=== PATIENT | female | born 1995 | race Caucasian/White ===

== ENCOUNTER 2017-07-05 14:22 | Observation (INO) ==
[2017-07-05 14:54] LABS: Bilirubin,Urine Small (Negative); Blood,Urine Negative (Negative); Clarity,Urine Clear (Clear); Color,Urine Dark Yellow (Yellow); Glucose,Urine (UA) Normal (Normal); Ketones,Urine 15 mg/dL (Negative); Leukocyte Esterase,Urine Negative (Negative); Nitrite,Urine Negative (Negative); PH,Urine 7.5 pH Units (5.0-8.0); Protein,Urine 30 mg/dL (Neg-Trace); Specific Gravity,Urine 1.029 (1.010-1.025); Urobilinogen,Urine Normal (Normal)
[2017-07-05 14:56] LABS: Bacteria,Urine Few per hpf (None-Few); Hyaline Casts,Urine None Seen per lpf (None-Few); RBC,Urine 0-3 per hpf (0-3); Squamous Epithelial Cell,Urine Many per lpf (None-Few)
--- NOTE | 2017-07-05 15:30 | Emergency Department Note ---
Disposition Clinical Impression: Appendicitis Qualifiers: Appendicitis type: acute appendicitis Acute appendicitis type: with localized peritonitis Qualified Code(s): K35.3 - Acute appendicitis with localized peritonitis Disposition: Admitted As Inpatient Condition: Good Time of Disposition: 15:49 General Adult HPI - General Chief complaint: ED Abdominal Pain Stated complaint: ABD pain Time Seen by Provider: 07/05/17 15:00 Source: patient Limitations: no limitations - History of Present Illness Pain Scale: 10 - Related Data Home Medications Medication Instructions Recorded Confirmed Albuterol Sulfate [Albuterol 2 puff IH Q4H PRN 10/09/15 07/05/17 Inhaler] Previous Rx's Medication Instructions Recorded Docusate [Colace] 100 mg PO BID #14 capsule 07/06/17 Oxycodone HCl 5 mg PO Q6H PRN #28 tablet 07/06/17 Allergies Allergy/AdvReac Type Severity Reaction Status Date / Time Sulfa (Sulfonamide Allergy See Verified 07/05/17 14:26 Antibiotics) Comments doxylamine AdvReac Confusion Verified 07/05/17 14:26 [facility] [place] [facility] Past Medical History - Past Medical History Medical history: Reports: asthma, other Surgical history: Reports: cholecystectomy Psychiatric history: Reports: anxiety, depression 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 - Social History Smoking Status: Current every day smoker Smokeless Tobacco Status: No Alcohol use: Reports: none Drug use: Reports: none Physical Exam - General Limitations: no limitations General appearance: alert Course Vital Signs Temperature 98.2 F 07/05/17 14:26 Pulse Rate 71 07/05/17 14:26 Respiratory Rate 20 07/05/17 14:26 Blood Pressure 127/80 07/05/17 14:26 O2 Sat by Pulse Oximetry 100 07/05/17 14:26 Temperature 97.7 F 07/06/17 06:35 Pulse Rate 61 07/06/17 06:35 Respiratory Rate 16 07/06/17 06:35 Blood Pressure 110/72 07/06/17 06:35 O2 Sat by Pulse Oximetry 97 07/06/17 06:35 Oxygen Delivery Oxygen Delivery Room Air Medical Decision Making - Lab Data Result diagrams: 07/05/17 15:33 07/05/17 15:33 Lab Results 07/05/17 07/05/17 07/05/17 Range/Units 14:43 14:43 15:33 WBC 17.9 H (4.3-11.1) K/mcL RBC 4.37 (3.82-4.97) M/mcL Hgb 13.7 (11.5-15.4) g/dL Hct 40.9 (35.3-44.9) % MCV 93.6 (83.0-100.0) fL MCH 31.4 (28.0-33.3) pg MCHC 33.5 (31.6-35.5) g/dL RDW 12.2 (11.5-14.5) % Plt Count 271 (140-400) K/mcL MPV 10.5 (9.4-12.4) fL Immature Gran % 0.4 (0-4) % Seg Neutrophils % 86.8 % Lymphocytes % 7.6 % Monocytes % 4.8 % Eosinophils % 0.2 % Basophils % 0.2 % Neutrophils # 15.6 H (1.6-8.9) K/mcL Lymphocytes # 1.4 (0.6-4.6) K/mcL Monocytes # 0.9 (0.0-1.3) K/mcL Eosinophils # 0.0 (0.0-0.6) K/mcL Basophils # 0.0 (0.0-0.2) K/mcL Immature Plt Fraction 4.6 (1.1-6.1) % Sodium (136-145) mEq/L Potassium (3.5-5.1) mEq/L Chloride (98-107) mEq/L Carbon Dioxide (23-29) mEq/L BUN (6-20) mg/dL Creatinine (0.60-1.20) mg/dL Est GFR ( Amer) (> 60) Est GFR (Non-Af Amer) (> 60) BUN/Creatinine Ratio (6-26) Glucose (70-105) mg/dL Calculated Osmolality (280-300) Calcium (8.6-10.3) mg/dL Total Bilirubin (0.3-1.0) mg/dL AST (13-39) Units/L ALT (7-52) Units/L Alkaline Phosphatase (34-104) Units/L Serum Total Protein (6.4-8.9) g/dL Albumin (3.5-5.7) g/dL Globulin (2.4-3.5) g/dL Albumin/Globulin Ratio (1.1-2.2) Amylase (29-103) Units/L Lipase (11-82) Units/L Urine Color Dark Yellow (Yellow) Urine Clarity Clear (Clear) Urine pH 7.5 (5.0-8.0) pH Units Ur Specific [place] 1.029 H (1.010-1.025) Urine Protein 30 H (Neg-Trace) mg/dL Urine Glucose (UA) Normal (Normal) mg/dL Urine Ketones 15 H (Negative) mg/dL Urine Blood Negative (Negative) Urine Nitrite Negative (Negative) Urine Bilirubin Small H (Negative) Urine Urobilinogen Normal (Normal) mg/dL Ur Leukocyte Esterase Negative (Negative) Urine Microscopic RBC 0-3 (0-3) per hpf Urine Microscopic WBC 3-5 H (0-3) per hpf Ur Squamous Epith Cells Many H (None-Few) per lpf Urine Bacteria Few (None-Few) per hpf Hyaline Casts None Seen (None-Few) per lpf Ur Culture Indicated? NO (NO) Urine Test Negative (Negative) 07/05/17 Range/Units 15:33 WBC (4.3-11.1) K/mcL RBC (3.82-4.97) M/mcL Hgb (11.5-15.4) g/dL Hct (35.3-44.9) % MCV (83.0-100.0) fL MCH (28.0-33.3) pg MCHC (31.6-35.5) g/dL RDW (11.5-14.5) % Plt Count (140-400) K/mcL MPV (9.4-12.4) fL Immature Gran % (0-4) % Seg Neutrophils % % Lymphocytes % % Monocytes % % Eosinophils % % Basophils % % Neutrophils # (1.6-8.9) K/mcL Lymphocytes # (0.6-4.6) K/mcL Monocytes # (0.0-1.3) K/mcL Eosinophils # (0.0-0.6) K/mcL Basophils # (0.0-0.2) K/mcL Immature Plt Fraction (1.1-6.1) % Sodium 136 (136-145) mEq/L Potassium 4.4 (3.5-5.1) mEq/L Chloride 106 (98-107) mEq/L Carbon Dioxide 26 (23-29) mEq/L BUN 6 (6-20) mg/dL Creatinine 0.69 (0.60-1.20) mg/dL Est GFR ( Amer) > 60 (> 60) Est GFR (Non-Af Amer) > 60 (> 60) BUN/Creatinine Ratio 9 (6-26) Glucose 104 (70-105) mg/dL Calculated Osmolality 280 (280-300) Calcium 9.4 (8.6-10.3) mg/dL Total Bilirubin 0.9 (0.3-1.0) mg/dL AST 11 L (13-39) Units/L ALT 16 (7-52) Units/L Alkaline Phosphatase 58 (34-104) Units/L Serum Total Protein 6.9 (6.4-8.9) g/dL Albumin 4.4 (3.5-5.7) g/dL Globulin 2.5 (2.4-3.5) g/dL Albumin/Globulin Ratio 1.8 (1.1-2.2) Amylase 18 L (29-103) Units/L Lipase 12 (11-82) Units/L Urine Color (Yellow) Urine Clarity (Clear) Urine pH (5.0-8.0) pH Units Ur Specific [place] (1.010-1.025) Urine Protein (Neg-Trace) mg/dL Urine Glucose (UA) (Normal) mg/dL Urine Ketones (Negative) mg/dL Urine Blood (Negative) Urine Nitrite (Negative) Urine Bilirubin (Negative) Urine Urobilinogen (Normal) mg/dL Ur Leukocyte Esterase (Negative) Urine Microscopic RBC (0-3) per hpf Urine Microscopic WBC (0-3) per hpf Ur Squamous Epith Cells (None-Few) per lpf Urine Bacteria (None-Few) per hpf Hyaline Casts (None-Few) per lpf Ur Culture Indicated? (NO) Urine Test (Negative) Attestation Statement - Attestation Attestation: I examined this patient and my medical decision-making was reviewed with the Resident Physician. I agree with the documented findings, disposition and treatment plan as described except to the extent set forth below. [id number] time provided Patient notes nausea and vomiting along with centrally located abdominal pain has now migrated to the right lower quadrant. She is tender on exam with some voluntary guarding. Abdomen is soft. I am concerned about acute appendicitis. CT abdomen and pelvis ordered. Patient was offered analgesics but declined
[2017-07-05 15:41] LABS: Basophils % 0.2 %; Eosinophils % 0.2 %; Hematocrit 40.9 % (35.3-44.9); Hemoglobin 13.7 g/dL (11.5-15.4); Immature Granulocytes % 0.4 % (0-4); Immature Platelets 4.6 % (1.1-6.1); Lymphocytes # 1.4 K/mcL (0.6-4.6); Lymphocytes % 7.6 %; Mean Corpuscular HGB Conc 33.5 g/dL (31.6-35.5); Mean Corpuscular Hemoglobin 31.4 pg (28.0-33.3); Mean Corpuscular Volume 93.6 fL (83.0-100.0); Mean Platelet Volume 10.5 fL (9.4-12.4); Monocytes # 0.9 K/mcL (0.0-1.3); Monocytes % 4.8 %; Neutrophils # 15.6 K/mcL (1.6-8.9); Platelet Count 271 K/mcL (140-400); Red Blood Count 4.37 M/mcL (3.82-4.97); Red Cell Distribution Width 12.2 % (11.5-14.5); Segmented Neutrophils % 86.8 %
[2017-07-05 15:58] LABS: Alanine Aminotransferase 16 Units/L (7-52); Albumin 4.4 g/dL (3.5-5.7); Albumin/Globulin Ratio 1.8 (1.1-2.2); Alkaline Phosphatase 58 Units/L (34-104); Amylase 18 Units/L (29-103); Aspartate Amino Transferase 11 Units/L (13-39); BUN/Creatinine Ratio 9 (6-26); Bilirubin,Total 0.9 mg/dL (0.3-1.0); Blood Urea Nitrogen 6 mg/dL (6-20); Calcium 9.4 mg/dL (8.6-10.3); Carbon Dioxide 26 mEq/L (23-29); Chloride 106 mEq/L (98-107); Globulin 2.5 g/dL (2.4-3.5); Glucose 104 mg/dL (70-105); Lipase 12 Units/L (11-82); Osmolality,Calculated 280 (280-300); Potassium 4.4 mEq/L (3.5-5.1); Sodium 136 mEq/L (136-145); Total Protein 6.9 g/dL (6.4-8.9); eGFR For African Americans > 60 (> 60); eGFR For Non-African Americans > 60 (> 60)
--- NOTE | 2017-07-05 18:23 | Anesthesia Evaluation PreOp ---
Date of Encounter: 07/05/17 Time of Encounter: 18:21 - Past History Planned Operation: Lap. Appy Cardiac History: Denies any Significant Hx Pulmonary History: Smoker, Asthma (Rarely uses inhaler) COUNCIL MEMBER History: Other (Anxiety) Other Medical History: Denies Any Significant HX Anesthesia History: No Prior Anesthetic Complications, Past Anesthesia (GB, Tubal) : No Test: Negative (07/05/17) Alcohol Use: none Drug use: none Medications and Allergies Albuterol Sulfate [Albuterol Inhaler] 2 puff IH Q4H PRN 10/09/15 [History] 3 Allergy/AdvReac Type Severity Reaction Status Date / Time Sulfa (Sulfonamide Allergy See Verified 07/05/17 14:26 Antibiotics) Comments doxylamine AdvReac Confusion Verified 07/05/17 14:26 [From [facility] (doxylamine)] - Meds/Allergy Pre-op Review Medications Reviewed: Yes Allergies Reviewed: Yes Beta Blockers on Current Med List: No Anesthesia Results - Labs 07/05/17 15:33 07/05/17 15:33 - Imaging EKG: report reviewed (SINUS RHYTHM WITH SINUS ARRHYTHMIA) Anesthesia Exam O2 Sat Height 1.7 m Weight 108.318 kg O2 Sat by Pulse Oximetry 100 Vital Signs Temp Pulse Resp BP Pulse Ox 98.2 F 71 20 127/80 100 07/05/17 14:26 07/05/17 14:26 07/05/17 14:26 07/05/17 14:26 07/05/17 14:26 Vital Signs/O2 Sat, Most Current Temp Pulse Resp BP Pulse Ox 98.2 F 71 20 127/80 100 07/05/17 14:26 07/05/17 14:26 07/05/17 14:26 07/05/17 14:26 07/05/17 14:26 Height: 5'7'' Weight: 238# NPO (# of Hours): > 8 hrs Pain Scale: 0 Pain Scale Used: Numeric (1 - 10) - HEENT Pupil (Motor): Pupils equal, EOMI Mallampati: II Teeth: Normal Oral Opening: Greater than 3 - COUNCIL MEMBER LOC: Oriented COUNCIL MEMBER Motor: Normal RUE, Normal LUE, Normal RLE, Normal LLE, Normal Face COUNCIL MEMBER Sensory: Normal: RUE, LUE, RLE, LLE, Face - Cardiac Rhythm: Regular Murmur: None JVD: No Carotid Bruit: No - Pulmonary Breath Sounds: bilateral Clear Respiratory Effort: Symmetrical Anesthesia Assess/Plan ASA Score: 2 Modified Kristina Scale for Level of Consciousness: Cooperative, oriented, and tranquil Anesthetic Plan: General Autologous Blood: Yes Monitoring Plan: Standard Monitors Recovery Plan: PACU
--- NOTE | 2017-07-05 18:27 | General Surg History&Physical ---
Date of Encounter: 07/05/17 Time of Encounter: 18:25 Assessment and Plan (1) Appendicitis Current Visit: Yes Status: Acute 21F with acute appendicitis; all imaging was reviewed and interpreted by me; non septic; - NPO - IVF - abx - OR for lap appy - consent The assessment and plan as outlined above was discussed with the patient and/or family members who expressed understanding and agreement. All questions were answered. Qualifiers: Appendicitis type: acute appendicitis Acute appendicitis type: with localized peritonitis Qualified Code(s): K35.3 - Acute appendicitis with localized peritonitis History of Present Illness Chief complaint: RLQ abdominal pain HPI: Ms. Montesinos is a 21 year old female h/o obesity who presents with 24hr history of abdominal pain. Start periumbilically with migration to the RLQ with associated nausea, vomiting, PO intolerance. Last meal was about 24hrs ago. The pain is a 10 and sharp in nature. She presents to the ED for further evaluation. No reports of fevers, chills, chest pain, nor shortness of breath Past Med Surg Social Fam HX - Past Medical History Medical history: asthma, other Psychiatric history: anxiety, depression - Past Surgical History Surgical History: cholecystectomy - Social History Smoking Status: Current every day smoker Smokeless Tobacco Status: No Alcohol use: none Drug use: none - Family History Father Adopted: No Family Member Ethnicity: Non- Living Status: Still Living Hx Family Cardiac Disorders: Yes (HTN, heart dx, hx HI) Hx Family Respiratory Disorders: No Hx Family Cancer: No Hx Family GI Disorders: No Hx Family Endocrine Disorder: Yes (DM) Hx Family Neuromuscular Disorders: No Hx Family Neurologic Disorders: No Hx Family HEENT Disorders: No Hx Family Autoimmune Disorders: No - Additional Family History Additional family history: non contributory Medications and Allergies Albuterol Sulfate [Albuterol Inhaler] 2 puff IH Q4H PRN 10/09/15 [History] 3 Allergy/AdvReac Type Severity Reaction Status Date / Time Sulfa (Sulfonamide Allergy See Verified 07/05/17 14:26 Antibiotics) Comments doxylamine AdvReac Confusion Verified 07/05/17 14:26 [From [facility] (doxylamine)] Review of Systems All systems PM: A 10-system review of systems was performed and is negative for pertinent findings except as documented above in the HPI. General Surgery Exam Initial Vital Signs Temp Pulse Resp BP Pulse Ox 98.2 F 71 20 127/80 100 07/05/17 14:26 07/05/17 14:26 07/05/17 14:26 07/05/17 14:26 07/05/17 14:26 - General physical appearance well developed, well nourished, no distress - Eyes normal ocular movement - ENT normocephalic - Neck no lymphadectomy - Respiratory normal expansion, normal respiratory effort - Cardiovascular Cardiovascular exam: Present: RRR - Abdomen Abdomen general surgery: Present: soft, tender Abdominal Tenderness: Present: RLQ - Integumentary Integumentary general surgery: Present: warm and dry - Neurologic Present: CN 2-12 grossly intact - Psychiatric Psychiatric general surgery: Present: A&Ox3 Results - Labs 07/05/17 15:33 07/05/17 15:33 Abnormal lab results WBC 17.9 K/mcL (4.3-11.1) H 07/05/17 15:33 Neutrophils # 15.6 K/mcL (1.6-8.9) H 07/05/17 15:33 AST 11 Units/L (13-39) L 07/05/17 15:33 Amylase 18 Units/L (29-103) L 07/05/17 15:33 Ur Specific [place] 1.029 (1.010-1.025) H 07/05/17 14:43 Urine Protein 30 mg/dL (Neg-Trace) H 07/05/17 14:43 Urine Ketones 15 mg/dL (Negative) H 07/05/17 14:43 Urine Bilirubin Small (Negative) H 07/05/17 14:43 Urine Microscopic WBC 3-5 per hpf (0-3) H 07/05/17 14:43 Ur Squamous Epith Cells Many per lpf (None-Few) H 07/05/17 14:43 All other labs normal. - Imaging CT scan - abdomen: report reviewed, image reviewed CT scan - pelvis: report reviewed, image reviewed
[2017-07-05] MEDS ORDERED: *HR* OxyCODONE/APAP 5/325 TABLET PO PRN (18:29)
[2017-07-05] MEDS ORDERED: Ondansetron 4 MG/2 ML VIAL IVP PRN ×2 (18:29→22:18)
[2017-07-05] MEDS ORDERED: Ibuprofen 600 MG TABLET PO PRN ×2 (18:29→22:18)
[2017-07-05] MEDS ORDERED: D5% in Lactated Ringers 1,000 ML IVC SCH (18:30)
[2017-07-05] MEDS ORDERED: Lidocaine -MPF 2% 2 ML VIAL ONE (18:41)
[2017-07-05] MEDS ORDERED: Ondansetron 4 MG/2 ML VIAL ONE (18:41)
[2017-07-05] MEDS ORDERED: *HR* Succinylcholine 200 MG/10 ML VIAL IVP ONE (18:41)
[2017-07-05] MEDS ORDERED: Dexamethasone 4 MG/ML VIAL ONE (18:41)
[2017-07-05] MEDS ORDERED: *HR* Rocuronium Bromide 50 MG/5 ML VIAL ONE (18:41)
[2017-07-05] MEDS ORDERED: *HR* Propofol 200 MG/20 ML VIAL IVP ONE (18:42)
[2017-07-05] MEDS ORDERED: Albuterol 2.5 MG/3 ML NEBULIZER ONE (18:47)
[2017-07-05] MEDS ORDERED: Ringers Solution, Lactated 1,000 ML ONE (18:47)
[2017-07-05] MEDS ORDERED: Scopolamine Patch 1.5 MG PATCH.TD72 ONE (18:56)
[2017-07-05] MEDS ORDERED: *HR* Promethazine 25 MG/ML VIAL IVP PRN ×2 (19:39→22:18)
[2017-07-05] MEDS ORDERED: *HR* HYDROmorphone (PF) 1 MG/ML SYRINGE IVP PRN ×2 (19:39→22:18)
[2017-07-05] MEDS ORDERED: *HR* FentaNYL (PF) 100 MCG/2 ML VIAL ONE (19:53)
[2017-07-05] MEDS ORDERED: *HR* Midazolam HCl 2 MG/2 ML VIAL ONE (19:53)
[2017-07-05] MEDS ORDERED: Piperacillin/Tazobactam 3.375 GM in Water for inj. (sterile) 20 ML 20 ML IVP ONE (20:00)
[2017-07-05] MEDS ORDERED: Neostigmine Methylsulfate 3 MG/3 ML SYRINGE ONE (20:05)
[2017-07-05] MEDS ORDERED: Ketorolac 30 MG/ML VIAL ONE (20:16)
[2017-07-05] MEDS ORDERED: *HR* HYDROmorphone 2 MG/ML SYRINGE ONE (20:16)
--- NOTE | 2017-07-05 21:07 | Operative Note ---
Date of procedure: 07/05/17 Pre-op diagnosis: acute appendicitis Post-op diagnosis: same Procedure: laparoscopic appendectomy Complications: none Anesthesia: GETA Local Anesthetics: 0.5% Sensorcaine HCL SubQ (cc) Surgeon: Marcell Velasquez Was there an commercial lending assistant present: No Estimated blood loss (cc): 10 Specimen: appendix Condition: stable Disposition: PACU Procedure in Detail: The patient was brought into the operating room suite. The patient was placed in the supine position. Mechanical DVT prophylaxis was initiated. The patient underwent smooth induction of general endotracheal anesthesia. The patient was prepped and draped in the usual fashion. Preoperative antibiotics were given. A timeout was held identifying the correct patient, pathology, and procedure. Everyone was in agreement and we began a procedure. Incision to Mesenteric Window I started bycreating a supraumbilical incision and via open Kruger technique entered into the abdomen. I then used a Vicryl suture on a UR 6 needle in a [id number] fashion to reapproximate but not close the fascia. I then inserted the 10 trocar followed by the camera to visualize the intraabdominal cavity. I then created a 5 mm incision suprapubically and inserted the 5 mm trocar under direct visualization. Roughly 1 handbreadth lateral to the umbilical incision I created another 5 mm incision and inserted another 5 mm trocar under direct visualization. I then inserted the nontraumatic instruments into the 5 mm ports and began the procedure. I was able to identify the tinea coli coalescing at the base of the cecum to identify the appendix. The appendix was visibly inflamed. Using the nontraumatic grasper I was able to grasp the appendix and then using the [place] dissector was able to create a mesenteric window. Mesenteric Window to Appendectomy I then inserted the nontraumatic grasper into the same mesenteric window to widen it. I then grasped the appendix and switched from the 10 mm camera to the 5 mm camera so that we can insert the stapler through the umbilical port. The teeth of the stapler through the mesenteric window. It should be stated that the stapler was a 45 mm bowel load stapler. It was positioned at the base of the appendix and I was able to confirm under direct visualization that the teeth contained no other structures such as the cecum. I then fired the stapler and resected the appendix from the base of the cecum. I then loaded up a vascular load stapler x 2 and then in the similar fashion did fire across the mesentery. There was a small bleeder from the mesentery that was controlled with hook cautery. Retrieval to Closure I then inserted the Endo Catch bag to retrieve the specimen which was intact upon retrieval. I then switched back to the 10 mm camera and inserted the nontraumatic grasper as well as a suction-ribbon lapper tender into the 5 mm ports. And under direct visualization I was able to appreciate the staple line of the mesoappendix as well as the staple line of the base of the cecum. There was no obvious leaking nor bleeding. The pelvis did not have any collection of fluid. I then concluded the procedure, turned off the insufflation, removed the trochars under direct visualization, and then closed the umbilical fascia using the Vicryl suture that was placed at the beginning. I then closed all incisions with interrupted 4-0 Monocryl. And then sealed with Dermabon. It should be stated that I did use 0.5% Marcaine as a local anesthetic. The patient tolerated the procedure well and did go back to PACU in stable condition.
--- NOTE | 2017-07-05 21:38 | Anesthesia Evaluation Post Op ---
Date of Encounter: 07/05/17 Time of Encounter: 21:38 - Vital Signs Vital Signs: Last Vital Signs Temp 98.1 F 07/05/17 21:36 Pulse 89 07/05/17 21:36 Resp 16 07/05/17 21:36 BP 141/71 07/05/17 21:36 Pulse Ox 95 07/05/17 21:36 - Lungs Lungs: Clear Ascult./Percussion - Airway Airway: Non-obstructed - Cardiovascular Regular Rate - Mental Status Mental Status: Alert & Oriented, Answers Appropriately - Pain Pain Scale: 2 - Nausea Vomiting Nausea Vomiting: Not Present - Hydration Hydration: Ice chips - Discharge PostOp Status: Transfer Patient to floor
[2017-07-05] MEDS ORDERED: D5% in 0.45% NACL w KCl 20 MEQ/1,000 ML MLS IVC SCH (22:18)
[2017-07-06] MEDS: *HR* OxyCODONE/APAP 5/325 TABLET PO PRN ×2 (01:05→07:51)
[2017-07-06] MEDS ORDERED: Piperacillin/Tazobactam 3.375 GM/200 ML BAG IVPB SCH ×2 (02:00)
[2017-07-06 06:36] VITALS: BP 110/72
--- NOTE | 2017-07-06 09:55 | Discharge Summary ---
<Eliza Mendosa - Last Filed: 07/06/17 12:56> Date of Encounter: 07/06/17 Time of Encounter: 09:49 - Discharge Diagnosis (1) Appendicitis Priority: Primary Status: Acute Qualifiers: Appendicitis type: acute appendicitis Acute appendicitis type: with localized peritonitis Qualified Code(s): K35.3 - Acute appendicitis with localized peritonitis - Discharge Medications Prescriptions: Docusate [Colace] 100 mg PO BID #14 capsule Oxycodone HCl 5 mg PO Q6H PRN #28 tablet PRN Reason: Pain Home Medications: Albuterol Sulfate [Albuterol Inhaler] 2 puff IH Q4H PRN 10/09/15 [History] Docusate [Colace] 100 mg PO BID #14 capsule 07/06/17 [Rx] Oxycodone HCl 5 mg PO Q6H PRN #28 tablet 07/06/17 [Rx] Allergies/Adverse Reactions: 3 Allergy/AdvReac Type Severity Reaction Status Date / Time Sulfa (Sulfonamide Allergy See Verified 07/05/17 14:26 Antibiotics) Comments doxylamine AdvReac Confusion Verified 07/05/17 14:26 [From [facility] (doxylamine)] General Surgery Exam Initial Vital Signs Temp Pulse Resp BP Pulse Ox 98.2 F 71 20 127/80 100 07/05/17 14:26 07/05/17 14:26 07/05/17 14:26 07/05/17 14:26 07/05/17 14:26 - General physical appearance well developed, well nourished, no distress, no pain - Eyes normal ocular movement - Respiratory normal expansion, normal respiratory effort - Cardiovascular Cardiovascular exam: Present: RRR. Absent: no murmurs/rubs/gallops - Abdomen Abdomen general surgery: Present: soft, tender (appropriate). Absent: rebound, rigid, peritoneal - Incision Incision: Present: clean and dry, intact. Absent: draining - Integumentary Integumentary general surgery: Present: warm and dry - Neurologic Present: CN 2-12 grossly intact, other (Alert and oriented x3) - Psychiatric Psychiatric general surgery: Present: appropriate Date of admission: 07/05/17 17:06 Primary care physician: Kallie Wick DO Consults: General surgery, Dr. Marcell Velasquez Discharging clinician: Eliza Mendosa Anticipated date of discharge: 07/06/17 - Patient Status Disposition: Home, Self-Care Condition: Good Functional capacity at discharge: independent ambulation Overall status at discharge: patient is progressing back to baseline - Discharge Instructions Instructions: Appendicitis (DC) Follow Up With: Kallie Wick DO [Primary Care Provider] - Marcell Velasquez MD [Non-Partnered Physician] - Additional Instructions: Follow up with surgeon Dr. Marcell Velasquez in 2 weeks Follow up with your PCP in 1 week Take prescriptions as directed If you develop fever, chills, nausea, vomiting, or worsening abdominal pain please go to nearest emergency department - Diet and Activity Activity: increase activity as tolerated, resume usual activities as tolerated Diet: advance to your usual diet - Hospital Course Hospital course: Ms. Montesinos is a 21 year old female who presented to the emergency department with c/o RLQ abdominal pain x 24hrs which began teddy-umbilically, migrating to RLQ and was associated with nausea, vomiting, PO intolerance. Patient's workup in the emergency department was significant for elevated white count 17.[address] abdomen pelvis significant for dilated appendix with focal inflammatory changes consistent with acute, uncomplicated appendicitis. Patient was made NPO and given IVF as well as IV Zosyn. Patient signed surgical consent form and was taken to the OR on 07/05/2017 for laparoscopic appendectomy under general anesthesia. Patient tolerated the procedure well, quickly progressing back to baseline. The next day, patient tolerated breakfast and felt she was ready for discharge home. On discharge, she was afebrile, vital signs were stable. Follow-up was recommended with surgeon Dr. Marcell Velasquez within 2 weeks of discharge. - Time Spent with Patient Total time spent providing and/or coordinating discharge services: <Marcell Velasquez - Last Filed: 07/07/17 09:47> Date of Encounter: 07/07/17 - Discharge Diagnosis (1) Appendicitis Status: Acute Qualifiers: Appendicitis type: acute appendicitis Acute appendicitis type: with localized peritonitis Qualified Code(s): K35.3 - Acute appendicitis with localized peritonitis General Surgery Exam Initial Vital Signs Temp Pulse Resp BP Pulse Ox 98.2 F 71 20 127/80 100 07/05/17 14:26 07/05/17 14:26 07/05/17 14:26 07/05/17 14:26 12/31/17 14:26 Date of admission: 07/05/17 17:06 Primary care physician: Kallie Wikc, DO - Hospital Course Hospital course: Ms. Montesinos is a 21 year old female - Time Spent with Patient Total time spent providing and/or coordinating discharge services: - Attending Attestation patient was seen and examined. i have reviewed all pertinent notes including this one. I agree with the above plan and wish to add the following... POD#1 s/p lap appy 2/2 acute appendicitis; afebrile, tolerating diet, minimal pain, non peritoneal on exam; incisions are clean, dry and intact; okay for discharge today
== END 2017-07-06 10:15 | disposition home or self-care (01) ==
LOC: EMEROO 14:22 → 3BNU 14:22 → 3ANU 07-06 00:30
PROVIDERS: ADMIT Surgery; ATTEND Surgery